=== PATIENT | male | born 1935 | race Caucasian/White ===

== ENCOUNTER → 2016-12-28 | Outpatient (CLI) | payer MEDICARE ==
--- NOTE | 2016-12-30 11:12 | US ---
EXAM DATE: 12/28/16 PATIENT'S AGE: 81 Patient: JAEL WINSLOW Facility: [facility] Site . Site : 1935 Study: US-Extremity Bilateral [id number]/[id number] 5:03:51 PM Ordering Physician: Acacia Hanna Final Report: DUPLEX ARTERIAL ULTRASOUND BILATERAL LOWER EXTREMITIES, 12/29/2016 CLINICAL HISTORY: .81-year-old with lower extremity edema and cold toes, left greater than right. COMPARISON: None available. TECHNIQUE: Duplex ultrasound evaluation of the arterial system of both lower extremities was performed with 2D and spectral analysis and color Doppler imaging. FINDINGS: Predominantly multiphasic waveforms are seen throughout both lower extremity arterial systems without evidence for hemodynamically significant stenosis or occlusion. IMPRESSION: Predominantly multiphasic waveforms throughout both lower extremity arterial systems without evidence for hemodynamically significant stenosis or occlusion. Lencho Viera M.D. [email or web address] GRACE/dannie D/ KB/Dictated by: Lencho Viera MD @ 12/29/2016 5:28:00 PM Signed by: Lencho Viera MD @12/30/2016 9:15:56 AM (Electronic Signature) Report Signed by Proxy and Original Signed Document filed in the Medical Record. [facility]
== END ==
LOC: MW.US 15:07
PROVIDERS: ATTEND Registered Nurse Emergency
DX: I99.8 Other disorder of circulatory system (principal); I73.9 Peripheral vascular disease, unspecified
CPT/HCPCS: 93925; 93925-26

== ENCOUNTER → 2017-01-27 | Outpatient (CLI) | payer MEDICARE, OTHER ==
--- NOTE | 2017-01-27 17:01 | CR ---
EXAMINATION: Right hip HISTORY: Pain COMPARISON: None TECHNIQUE: 2 views FINDINGS/IMPRESSION: There is no acute osseous abnormality, dislocation, or fracture identified. Bon e mineralization and joint spaces appear preserved. Mild subchondral sclerosis is noted within the s uperior acetabular rim.
== END ==
LOC: MW.CHFP 12:07
PROVIDERS: ATTEND Physician Assistant
DX: M25.551 Pain in right hip (principal); M89.8X8 Other specified disorders of bone, other site
CPT/HCPCS: 36415; 73502-26-RT; 73502-RT; 85025; 85652; G0463

== ENCOUNTER → 2017-01-28 | Outpatient (CLI) | payer MEDICARE, OTHER ==
--- NOTE | 2017-01-28 14:12 | US ---
ULTRASOUND EXAMINATION OF the right lower extremity WITH DOPPLER HISTORY: Pain FINDINGS: Examination of the right leg was performed from the groin to the calf region. All visualized segmen ts including common femoral, proximal greater saphenous, superficial femoral, popliteal and calf vei ns appear patent with good compressibility and augmentation. There is no evidence of deep vein thro mbosis. IMPRESSION: No evidence of a DVT.
== END ==
LOC: MW.US 12:57
PROVIDERS: ATTEND Physician Assistant
DX: M25.551 Pain in right hip (principal)
CPT/HCPCS: 93971-26-RT; 93971-RT

== ENCOUNTER 2017-08-26 06:34 | Day surgery (SDC) | payer OTHER, MEDICARE ==
[~2017-08-26 06:34] MED LIST: Lactated Ringers 1,000 ML IV SCH; Sodium Chloride 0.9% 10 ML Syringe FLUSH PRN; Sodium Chloride 0.9% 2.5 ML Syringe FLUSH PRN
[2017-08-26] MEDS ORDERED: Lactated Ringers 1,000 ML IV SCH (07:15)
--- NOTE | 2017-08-26 07:16 | PCM.PREANE ---
Preanesthetic Assessment - Anesthesia/Transfusion/Family Hx Anesthesia History: Prior Anesthesia Without Reaction Family History of Anesthesia Reaction: No Transfusion History: Prior Transfusion Without Reaction Intubation History: Unknown - Review of Systems General: No Symptoms Pulmonary: No Symptoms Cardiovascular: No Symptoms Gastrointestinal: No Symptoms, Other (s/p hemicolectomy for colon cancer) Neurological: No Symptoms Other: Reports: None - Physical Assessment Height: 1.8 m Weight: 122.924 kg ASA Class: 3 Mental Status: Alert & Oriented x3 Airway Class: Mallampati = 2 Dentition: Reports: Dentures (upper and lower) Thyro-Mental Finger Breadths: 3 Mouth Opening Finger Breadths: 3 ROM/Head Extension: Limited/Partial Lungs: Clear to Auscultation, Normal Respiratory Effort Cardiovascular: Regular Rate, Regular Rhythm - Allergies Allergies/Adverse Reactions: Allergies Allergy/AdvReac Type Severity Reaction Status Date / Time rosuvastatin [From Crestor] Allergy Body Aches Verified 08/23/17 11:17 - Blood Blood Available: No - Anesthesia Plan Pre-Op Medication Ordered: None - Acknowledgements Anesthesia Type Planned: MAC Pt an Appropriate Candidate for the Planned Anesthesia: Yes Alternatives and Risks of Anesthesia Discussed w Pt/Guardian: Yes Pt/Guardian Understands and Agrees with Anesthesia Plan: Yes PreAnesthesia Questionnaire HEENT History: Reports: Hard of Hearing Other HEENT History: felipe hearing aids, top and bottom denture Cardiovascular History: Reports: CAD, High Cholesterol, Hypertension, Pacemaker , Stents Gastrointestinal History: Reports: GERD, Other (See Below) Other Gastrointestinal History: right hemicolectomy for colon cancer '10 Genitourinary History: Reports: BPH Musculoskeletal History: Reports: Arthritis, Back Pain, Chronic, Gout Neurological History: Reports: Neuropathy, Peripheral (diabetic) Endocrine/Metabolic History: Reports: Diabetes, Type II, Obesity/BMI 30+ Hematologic History: Reports: Blood Transfusion(s) Oncologic (Cancer) History: Reports: Basal Cell Carcinoma, Colon - Past Surgical History Head Surgeries/Procedures: Reports: None HEENT Surgical History: Reports: Cataract Surgery Cardiovascular Surgical History: Reports: Coronary Artery Stent (x3, RCA x1 in ' 06, LAD x2 '14, EF 55-60%), Pacer (a year ago, last check 02/10 ok) GI Surgical History: Reports: Cholecystectomy (open), Colon (x2, last one '), Colonoscopy Dermatological Surgical History: Reports: Skin Biopsy - SUBSTANCE USE Smoking Status *Q: Former Smoker Recreational Drug Use History: No - HOME MEDS Home Medications: Home Meds Allopurinol [Zyloprim] 300 mg PO DAILY 08/23/17 [History] Aspirin [Erwin Aspirin] 81 mg PO DAILY 08/23/17 [History] Betamethasone Dipropionate [Diprosone 0.05% Crm] 1 applic TOP ASDIRECTED PRN [History] Canagliflozin [Invokana] 300 mg PO DAILY 08/23/17 [History] Fenofibrate Nanocrystallized [Fenofibrate] 145 mg PO DAILY 08/23/17 [History] Furosemide 20 mg PO DAILY 08/23/17 [History] Gabapentin [Neurontin] 600 mg PO TID 08/23/17 [History] Hydrochlorothiazide 25 mg PO ASDIRECTED 08/23/17 [History] Lisinopril 40 mg PO ACBREAKFAST 08/23/17 [History] Magnesium Oxide [Magnesium] 420 mg PO DAILY 08/23/17 [History] Meclizine HCl 25 mg PO QID PRN 08/23/17 [History] Nitroglycerin 9 mg PO BID 08/23/17 [History] Nitroglycerin [Nitrostat] 0.4 mg SL ASDIRECTED PRN 08/23/17 [History] Omeprazole 20 mg PO DAILY 08/23/17 [History] Simvastatin [Zocor] 20 mg PO BEDTIME 08/23/17 [History] Tamsulosin HCl [Flomax] 0.4 mg PO DAILY 08/23/17 [History] Triamcinolone Acetonide [Triamcinolone Acetonide 0.1% Crm] 1 applic TOP ASDIRECTED PRN 08/23/17 [History] amLODIPine Besylate [Amlodipine Besylate] 10 mg PO DAILY 08/23/17 [History] glipiZIDE [Glipizide ER] 2 tab PO DAILY 08/23/17 [History] metFORMIN HCl [Metformin HCl] 0.5 tab PO BID 08/23/17 [History] traMADol HCl [Tramadol HCl] 50 mg PO QID PRN 08/23/17 [History] - CURRENT (IN HOUSE) MEDS Current Meds: Current Medications Lactated Ringer's (Ringers, Lactated) 1,000 mls @ 125 mls/hr IV ASDIRECTED ABELARDO Lactated Ringer's (Ringers, Lactated) 1,000 mls @ 125 mls/hr IV ASDIRECTED ABELARDO Sodium Chloride (Saline Flush) 10 ml FLUSH ASDIRECTED PRN PRN Reason: Keep Vein Open Sodium Chloride (Saline Flush) 2.5 ml FLUSH ASDIRECTED PRN PRN Reason: Keep Vein Open Sodium Chloride (Saline Flush) 10 ml FLUSH ASDIRECTED PRN PRN Reason: Keep Vein Open Sodium Chloride (Saline Flush) 2.5 ml FLUSH ASDIRECTED PRN PRN Reason: Keep Vein Open
[2017-08-26] MEDS ORDERED: Propofol 200 MG/20 ML SDV ONE (07:31)
[2017-08-26] MEDS ORDERED: fentaNYL 100 MCG/2 ML SDV ONE (07:32)
[2017-08-26] MEDS ORDERED: Midazolam 1 MG/ML 2 ML SDV ONE (07:32)
--- NOTE | 2017-08-26 14:15 | PCM.OPNOTE ---
- General Post-Op/Procedure Note Date of Surgery/Procedure: 08/26/17 Operative Procedure(s): Colonoscopy Findings: Diverticulosis, Proximal colon polyp at 80cm Pre Op Diagnosis: History of colon cancer s/p right hemicolectomy Post-Op Diagnosis: Colon polyp, diverticulosis Anesthesia Technique: [facility] Primary Surgeon: Shefali Sullivan Condition: Good Free Text/Narrative:: Intake & Output 08/25/17 08/26/17 08/26/17 22:59 06:59 14:59 Intake Total 700 Balance 700
--- NOTE | 2017-08-26 20:35 | OR ---
SURGEON: SHEFALI SULLIVAN MD DATE OF PROCEDURE: 08/26/2017 PREOPERATIVE DIAGNOSIS: History of colon cancer. POSTOPERATIVE DIAGNOSES: Proximal colon polyp, diverticulosis. PROCEDURE PERFORMED: Diagnostic colonoscopy. ENDOSCOPIST: Dr. Shefali Sullivan. ANESTHESIA: MAC. EXTENT OF EXAM: To the anastomosis of the previous right hemicolectomy site. INSTRUMENT USED: Olympus colonoscope. PREPARATION: Good. LIMITATIONS: None. INDICATION FOR EXAMINATION: The patient is an 82-year-old male, who underwent a right hemicolectomy for colon cancer approximately 5 years ago. He is overdue for a repeat colonoscopy. The patient and I discussed the procedure as well as expected perioperative course. We discussed the risks, including bleeding, infection, or perforation. The patient verbalized understanding and wishes to proceed. PROCEDURE IN DETAIL: The patient was brought into the endoscopy suite and placed in left lateral decubitus position. A time-out was completed verifying the patient's name, age, date of , allergies, and procedure to be performed. Monitored anesthesia care was induced and continuous oxygen was provided via nasal cannula throughout the procedure. After adequate sedation was achieved, a digital rectal exam was performed. This exam was within normal limits. A well lubricated colonoscope was inserted to the rectum and advanced under direct visualization to the level of the small bowel and colonic anastomosis. This appeared normal with no evidence of any recurrent disease. A photograph was taken. The scope was then fully withdrawn while examining the color, texture, anatomy, and integrity of the mucosa from the cecum to the anal canal. The patient was found to have a 2 to 3 mm polyp in the proximal colon at 80 cm. This was removed using a cold biopsy forceps and sent to pathology. The patient was also found to have diverticulosis. The scope was then brought into the rectum and retroflexed with visualization of the anal canal opening. This appeared normal and a photograph was taken. The scope was then straightened out and removed from the patient. The patient tolerated the procedure well. The cecum to anus time was 12 minutes. The patient was then transferred to the PACU in stable condition. GABRIELLE DORADO /[id number] ELIZABETH
== END 2017-08-26 09:10 | disposition home or self-care (01) ==
LOC: MW.SDS 06:34
PROVIDERS: ATTEND Surgery
DX: Z12.11 Encounter for screening for malignant neoplasm of colon (principal); E78.5 Hyperlipidemia, unspecified; I12.9 Hypertensive chronic kidney disease with stage 1 through stage 4 chronic kidney disease, or unspecified chronic kidney disease; I25.10 Atherosclerotic heart disease of native coronary artery without angina pectoris; N18.9 Chronic kidney disease, unspecified; D12.6 Benign neoplasm of colon, unspecified; M19.90 Unspecified osteoarthritis, unspecified site; E11.42 Type 2 diabetes mellitus with diabetic polyneuropathy; E11.22 Type 2 diabetes mellitus with diabetic chronic kidney disease; K21.9 Gastro-esophageal reflux disease without esophagitis; K57.30 Diverticulosis of large intestine without perforation or abscess without bleeding; E66.9 Obesity, unspecified; N40.0 Benign prostatic hyperplasia without lower urinary tract symptoms; M10.9 Gout, unspecified; Z79.899 Other long term (current) drug therapy; Z85.038 Personal history of other malignant neoplasm of large intestine; Z79.82 Long term (current) use of aspirin; Z79.84 Long term (current) use of oral hypoglycemic drugs; Z87.891 Personal history of nicotine dependence; Z88.8 Allergy status to other drugs, medicaments and biological substances; Z68.30 Body mass index [BMI] 30.0-30.9, adult; Z95.5 Presence of coronary angioplasty implant and graft; Z95.0 Presence of cardiac pacemaker
CPT/HCPCS: 45380; 82962; J2250; J3010; J7120; 00810; 88305; J2704